=== PATIENT | male | born 1940 | race Caucasian/White ===

== ENCOUNTER → 2018-09-12 | Outpatient (CLI) | payer BC | LOC: FIMAGING 06:20 | PROVIDERS: ATTEND Orthopaedic Surgery | DX: M25.561 Pain in right knee (principal); S86.111A Strain of other muscle(s) and tendon(s) of posterior muscle group at lower leg level, right leg, initial encounter; S83.271A Complex tear of lateral meniscus, current injury, right knee, initial encounter; S83.251A Bucket-handle tear of lateral meniscus, current injury, right knee, initial encounter ==

== ENCOUNTER 2018-10-07 07:38 | Day surgery (SDC) | payer BC, OTHER ==
[2018-10-07] MEDS ORDERED: ceFAZolin 2 GM/DEXTROSE 100 ML IV ONE (07:53)
[2018-10-07] MEDS ORDERED: LR 1,000 ML IV ONE (08:35)
--- NOTE | 2018-10-07 09:23 | PDANEPAE ---
ANE History of Present Illness Torn meniscus ANE Past Medical History - Cardiovascular History Hx Hypertension: Yes Hx Arrhythmias: Yes Hx Chest Pain: No Hx Coronary Artery / Peripheral Vascular Disease: Yes Hx CHF / Valvular Disease: Yes Hx Palpitations: No - Pulmonary History Hx COPD: No Hx Asthma/Reactive Airway Disease: No Hx Recent Upper Respiratory Infection: No Hx Oxygen in Use at Home: No Hx Sleep Apnea: No Sleep Apnea Screening Result - Last Documented: Positive Pulmonary History Comment: [place] DX NON COMPLIANT WITH C-PAP - Neurologic History Hx Cerebrovascular Accident: No Hx Seizures: No Hx Dementia: No - Endocrine History Hx Diabetes: No - Renal History Hx Renal Disorders: Yes Renal History Comment: BPH - Liver History Hx Hepatic Disorders: No - Neurological & Psychiatric Hx Hx Neurological and Psychiatric Disorders: Yes Neurological / Psychiatric History Comment: ANXIETY. INSOMNIA - Cancer History Hx Cancer: No - Congenital Disorder History Hx Congenital Disorders: No - GI History Hx Gastrointestinal Disorders: Yes Gastrointestinal History Comment: GERD. HX GI ULCER - Other Health History Other Health History: SPINAL STENOSIS/DDD. BRUISES EASILY - Chronic Pain History Chronic Pain: Yes (LOWER BACK) - Surgical History Prior Surgeries: GABG X4 2004. CARDIAC STENTS. LUMBAR FUSION L4-5 ANE Review of Systems Review of Systems: - Exercise capacity METS (RN): 4 METS ANE Patient History - Allergies Allergies/Adverse Reactions: No Known Allergies Allergy (Unverified 02/06/15 07:58) - Home Medications Home medications: home medication list seen and reviewed Home Medications: Atorvastatin Calcium HS 10/03/18 [Last Taken 10/06/18] CLONAZEPAM TID 10/03/18 [Last Taken 10/07/18] Furosemide 60 DAILY AT 2PM 10/03/18 [Last Taken 10/06/18] Herbals/Supplements -Info Only DAILY 10/03/18 [Last Taken 09/30/18] MS Contin/Oramorph SR 30 mg (*) BID 10/03/18 [Last Taken 10/06/18] Movantik DAILY 10/03/18 [Last Taken 10/05/18] [place] 7.5-325 Tablet PRN 10/03/18 [Last Taken 10/06/18] PARoxetine HCL HS 10/03/18 [Last Taken 10/06/18] Pantoprazole Sodium DAILY 10/03/18 [Last Taken 10/07/18] Potassium Chloride DAILY AT 2PM 10/03/18 [Last Taken 10/06/18] Tamsulosin HCl DAILY 10/03/18 [Last Taken 10/07/18] Tikosyn 0.25 MG (*) BID 10/03/18 [Last Taken 10/07/18] Xarelto DAILY AT 6PM 10/03/18 [Last Taken 09/30/18] ZOLPIDEM TARTRATE HS 10/03/18 [Last Taken 10/06/18] - NPO status NPO Since - Liquids (Date): 10/07/18 NPO Since - Liquids (Time): 06:00 NPO Since - Solids (Date): 10/06/18 NPO Since - Solids (Time): 21:00 - Anes Hx Anes Hx: no prior problems - Smoking Hx Smoking Status: Former smoker ANE Labs/Vital Signs - Vital Signs Blood Pressure: 122/72 Heart Rate: 57 Respiratory Rate: 16 O2 Sat (%): 93 Height: 177.8 cm Weight: 74.843 kg ANE Physical Exam - Airway Neck exam: decreased ROM Mallampati Score: Class 2 Mouth exam: normal dental/mouth exam - Pulmonary Pulmonary: no respiratory distress - Cardiovascular Cardiovascular: regular rate and rhythym - ASA Status ASA Status: III ANE Anesthesia Plan Anesthesia Plan: GA w LMA
--- NOTE | 2018-10-07 09:28 | PDHPUP ---
History & Physical Update H&P update statement: This history and physical update is based on an assessment of the patient which was completed after admission or registration (within 24 hours), but prior to the surgery/procedure. H&P update: H&P reviewed & patient examined
[2018-10-07] MEDS ORDERED: MIDAZOLAM 2 MG/2 ML VIAL IVP ONE (09:33)
[2018-10-07] MEDS ORDERED: fentaNYL 100 MCG/2 ML INJ ONE (09:41)
[2018-10-07] MEDS ORDERED: PROPOFOL 200 MG/20 ML VIAL ONE (09:41)
[2018-10-07] MEDS ORDERED: BUPIVACAINE/EPI 0.5% 30 ML SDV ONE (09:42)
[2018-10-07] MEDS ORDERED: LIDOCAINE 2% 5 ML SDV ONE (09:42)
[2018-10-07] MEDS ORDERED: DEXAMETHASONE 4 MG/ML VIAL ONE (10:06)
[2018-10-07] MEDS ORDERED: ONDANSETRON 4 MG/2 ML VIAL ONE (10:07)
[2018-10-07] MEDS ORDERED: GLYCOPYRROLATE 0.2 MG/1 ML VIAL ONE (10:07)
[2018-10-07] MEDS ORDERED: fentaNYL 100 MCG/2 ML INJ IVP PRN (10:10)
[2018-10-07] MEDS ORDERED: HYDROmorphONE/DILAUDID 2 MG/ML INJ IVP PRN (10:10)
[2018-10-07] MEDS ORDERED: NALOXONE HCL 0.4 MG/ML INJ IVP PRN ×2 (10:10→11:12)
[2018-10-07] MEDS ORDERED: ONDANSETRON 4 MG/2 ML VIAL IVP PRN (10:10)
[2018-10-07] MEDS ORDERED: PHENYLEPHRINE HCL 100 MCG/ML SYR ONE (10:14)
[2018-10-07] MEDS ORDERED: ACETAMINOPHEN 500 MG TAB PO PRN (11:12)
[2018-10-07] MEDS ORDERED: HYDROCODONE/APAP 5/325 TAB PO PRN (11:12)
--- NOTE | 2018-10-07 11:14 | POSTANESTH ---
Post Anesthetic Evaluation Cardiovascular Status: Similar to Pre-Op Cond Respiratory Status: Similar to Pre-op Cond. Level of Consciousness/Mental Status: Alert and Oriented Pain Control: Adequate, Prn Tx Ordered Nausea/Vomiting Control: Adequate, Prn Tx Ordered Complications Possibly Related to Anesthesia: None Noted
--- NOTE | 2018-10-07 11:18 | POSTOPPROG ---
Post Op Note Date of Operation: 10/07/18 Surgeon: Tarsha Bob Slipcover Cutter: Roya Chavez PA-C Anesthesiologist: Dr. Lito Berrios Anesthesia: GET(General Endotracheal) Pre-op Diagnosis: meniscal tear Post-op Diagnosis: bilateral meniscal tear Indication: knee pain Procedure: right knee partial bilateral meniscectomy Inf/Abcess present in the surg proc area at time of surgery?: No EBL: Minimal Complications: none
--- NOTE | 2018-10-07 11:19 | SOAPPROG ---
SOAP Progress Note Assessment/Plan: Assessment/Plan: 77y/o male s/p right knee partial bilateral meniscectomy - ambulate with assist - TEDs/SCDs - start anticoagulation 48 hours post-op - Stitzer for pain control - f/u in 7 days - call with any issues - dc when PACU criteria met 10/07/18 11:18 Objective: Vital Signs Temp Pulse Resp BP Pulse Ox 36.6 C 57 L 16 122/72 H 93 10/07/18 08:21 10/07/18 11:14 10/07/18 11:14 10/07/18 11:14 10/07/18 11:14 NAD, well appearing, no distress EOMi, face symmetric wiggles toes bilaterally incisions clean, dressed ICD10 Worksheet Patient Problems: Problems Problem Status Onset GI bleed Acute
[2018-10-07 11:52] VITALS: BP 122/69
--- NOTE | 2018-10-07 13:31 | GOP ---
DATE OF OPERATION: 10/07/2018 SURGEON: Tarsha Bob MD HOSPITAL PHARMACIST: DELVIS Alva. ANESTHESIA: General. PREOPERATIVE DIAGNOSIS: Bilateral meniscus tears, early degenerative arthritis, right knee. POSTOPERATIVE DIAGNOSIS: Bilateral meniscus tears, early degenerative arthritis, right knee. PROCEDURE PERFORMED: Arthroscopy, chondroplasty patella, bilateral meniscectomy, right knee. FINDINGS: A diagnostic arthroscopy of the right knee was performed with the following findings. 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 There were also some loose flaps of art icular cartilage on the posterior patella, which were debrided with a shaver and a basket. The patie nt had some thinning of the articular cartilage in the trochlear groove but no area of full-thickness loss. The medial compartment was entered, and the patient had a degenerative tear of the medial men iscus which extended through the posterior half of the meniscus to the posterior root. A partial med ial meniscectomy was performed with the baskets and the shaver. The patient also had grade 3-4 chond romalacia of the medial femoral condyle on the weightbearing surface. Again, some loose flaps of art icular cartilage were debrided. 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 The lateral compartment was entered, and the patient had a displaced bucket-miller dle tear of the lateral meniscus. The bucket-handle tear was reduced, and then a partial lateral men iscectomy was performed. The bucket-handle fragment was removed, and the meniscus was trimmed back t o a stable rim. Approximately 70% of the meniscus was excised. The articular cartilage on the later al tibial plateau was intact. There were some loose flaps of articular cartilage on the lateral femo ral condyle which were debrided. ESTIMATED BLOOD LOSS: Minimal. DESCRIPTION OF PROCEDURE: The patient was taken to the operating room, placed in supine position on the operating table. Following induction of adequate general inhalation anesthesia, the knee and leg were prepped and draped in the usual sterile manner. The patient's received 1 g of IV Ancef. The a rthroscope was introduced through a lateral portal and the instrumentation through a medial portal. A diagnostic arthroscopy was performed with the above-noted findings. Our attention was turned first to the pathology in the medial compartment. The medial meniscus was trimmed with the baskets and th e shaver. It was trimmed back to a stable rim. The instruments were then placed laterally, and the same procedure was repeated on the lateral meniscus. Chondroplasty of the medial and lateral femoral condyles was performed and then the chondroplasty of the patella was completed. At the completion o f the procedure, the instrumentation was removed and the knee was injected with 20 cc of 0.5% Marcain e with epinephrine. The portals were closed using 4-0 nylon in an interrupted fashion. Sterile dres sings were applied. The patient tolerated the procedure well. There were no complications. Estimat ed blood loss minimal. Final sponge and needle counts were correct. The patient was transported to the recovery room in good condition. /[id number]/MODL
== END 2018-10-07 12:59 | disposition home or self-care (01) ==
LOC: FSGY 07:38
PROVIDERS: ATTEND Orthopaedic Surgery
PROC: 0SBC4ZZ Excision of Right Knee Joint, Percutaneous Endoscopic Approach (ICD-10-PCS; principal; 2018-10-07 09:30)
DX: M23.231 Derangement of other medial meniscus due to old tear or injury, right knee (principal); M23.261 Derangement of other lateral meniscus due to old tear or injury, right knee; M22.41 Chondromalacia patellae, right knee; I25.10 Atherosclerotic heart disease of native coronary artery without angina pectoris; I48.0 Paroxysmal atrial fibrillation; I50.9 Heart failure, unspecified; I34.0 Nonrheumatic mitral (valve) insufficiency; I49.5 Sick sinus syndrome; I11.0 Hypertensive heart disease with heart failure; E78.5 Hyperlipidemia, unspecified; G47.33 Obstructive sleep apnea (adult) (pediatric); Z95.1 Presence of aortocoronary bypass graft; Z79.01 Long term (current) use of anticoagulants
CPT/HCPCS: J0690; J1100; J2250; J2370; J2405; J2704; J3010

== ENCOUNTER → 2018-11-10 | Outpatient (CLI) | payer BC | LOC: FIMAGING 09:48 | PROVIDERS: ATTEND Physician Assistant | DX: M51.36 Other intervertebral disc degeneration, lumbar region (principal); M43.16 Spondylolisthesis, lumbar region; M48.07 Spinal stenosis, lumbosacral region; M53.87 Other specified dorsopathies, lumbosacral region; R93.5 Abnormal findings on diagnostic imaging of other abdominal regions, including retroperitoneum ==

== ENCOUNTER → 2018-11-22 | Outpatient (CLI) | payer BC | LOC: FIMAGING 07:17 | PROVIDERS: ATTEND Family Medicine | DX: N32.89 Other specified disorders of bladder (principal) ==